=== PATIENT | male | born 1990 | race Hispanic/Latino ===

== ENCOUNTER 2022-08-06 12:58 | Emergency (ER) | payer SELFPAY ==
[2022-08-06] MEDS ORDERED: Ibuprofen 200 MG TAB ONE (16:19)
== END 2022-08-06 16:40 | disposition home or self-care (01) ==
LOC: CSHERS 12:58
DX: S93.401A Sprain of unspecified ligament of right ankle, initial encounter (principal); W17.89XA Other fall from one level to another, initial encounter